=== PATIENT | male | born 1985 | race Caucasian/White ===

== ENCOUNTER 2023-07-31 21:12 | Emergency (ER) | payer OTHER, SELFPAY ==
[2023-07-31 21:12] VITALS: BMI 24.1
[2023-07-31 21:17] VITALS: BP 126/71
--- NOTE | 2023-07-31 23:18 | ED.GENMED ---
History of Present Illness
General
Chief Complaint: Foreign Body Removal
Source: patient
Exam Limitations: none
Time Seen by Provider: 07/31/23 23:12
Travel History
Have you had any contact with someone who has COVID-19?: No
Do you have any symptoms of coronavirus? Fever > 100 degrees, chills, cough, shortness of breath, sore throat, loss of taste or smell, muscle aches, or headache?: No
History of Present Illness
History of Present Illness:
See MDM
Past History
Past History
ED Past Medical History: GERD, Psychiatric (Depression) and Other (ankylosing spondylitis, colitis, rheumatoid arthritis, chronic pain syndrome/opioid dependent, depression, failure to thrive, GERD)
ED Past Surgical History: None
Social History
Personal: Single
Living: alone (currently residing at [facility] since 08/13/14 d/t inability to care for self at home.)
Employment: Disabled
Family History
Family History: Other (Noncontributory.)
Phy Exam
Physical Exam
Physical Exam:
See MDM
Course
Vital Signs
Initial and Last Documented VS:
Initial Vital Signs
Temp Pulse Resp BP Pulse Ox
98.1 F 73 16 126/71 99
07/31/23 21:17 07/31/23 21:17 07/31/23 21:17 07/31/23 21:17 07/31/23 21:17
Last Documented Vital Signs
Temp Pulse Resp BP Pulse Ox
98.1 F 73 16 126/71 99
07/31/23 21:17 07/31/23 21:17 07/31/23 21:17 07/31/23 21:17 07/31/23 21:17
Procedures
Foreign Body Removal-Skin
Wound explored and foreign body removed?: Yes
Foreign body removed using: forceps
Foreign body removed: completely
MDM/Problems Addressed
Differential Diagnosis Includes:
HPI and MDM Narrative:
38-year-old male presenting with a foreign body in his mouth. Patient was eating a hamburger and he felt a crochet machine operator his gums, behind his right molar. Patient believes it could be a piece of wire
Patient is unsure about his last tetanus shot but declined one here
Physical exam
General: Well appearing and non-toxic
HEENT: protecting airway. Thin metal wire noted lodged in gingiva behind right lower molar
Neck: appears supple
CV: No evidence of cyanosis
Resp: No accessory muscle use
Abd: Non-distended
Extremities: No deformities
Neuro: alert
Psych: Normal affect
Skin: Intact
Problems Addressed including Acute and Chronic Conditions affecting care:
1. Oral foreign body
Acuity: acute
Prognosis: stable
Details: Mosquito forceps were used and the foreign body was easily pulled out of the gingiva. No complications noted. The foreign body measured approximately 1.5 cm.
Updates
After the foreign body was removed, patient feeling better. Discussed looking for any signs of infection in that area such as abscess or discharge
Differential Diagnosis (but not limited to): Foreign body, abrasion
Testing considered: X-ray looking for other foreign bodies
Drug therapy (if applicable): OTC meds, please see d/c instruction regarding Rx drugs
Amount and/or Complexity of Data Reviewed
Clinical info obtained from: Patient
External data reviewed: N/A
Labs I independently reviewed (but not limited to): N/A
Radiology: N/A
Pulse Ox: not hypoxic
EKG independently reviewed: N/A
Occasional Babysitter: N/A
Critical Care: N/A
Risk of Complication:
Social Determinants of health: Good social support
Discussed with other providers: N/A
Escalation of Care includes Admit/Obs: After being observed in the Emergency Department, pt stable for discharge.
Occasional wrong word or 'sound a like' substitutions may have occurred due to the inherent limitations of voice recognition software. Read the chart carefully and recognize, using context, where substitutions have occurred.
*Critical Care Note
Total Time (30-74mins, 75-104mins- exclusive of procedures): Not Applicable
ED Attending Note
-
Portions of this chart may have been created with voice recognition software.� Occasional wrong word or��sound alike� substitutions may have occurred due to the inherent limitations of voice recognition software.
Discharge Plan
Departure
Patient Disposition: Home (Routine Discharge)
Date of Disposition: 07/31/23
Time of Disposition: 23:19
Patient with high blood pressure during this ER visit?: No
Discharge Problem:
Foreign body in mouth
Prescriptions:
No Action
acetaminophen 325 MG tablet
650 mg PO Q4HPRN PRN (Reason: pain (1-4)/ temp>100)
magnesium hydroxide 30 ML suspension
30 ml PO HSPRN PRN (Reason: no BM x 3 days)
oxycodone-acetaminophen [Percocet] 1 EACH tablet
1 ea PO Q8HPRN PRN (Reason: severe pain)
bisacodyl [OneLAX Bisacodyl] 10 MG suppository
10 mg MI DAILYPRN PRN (Reason: Constipation if MOM ineff.)
ferrous sulfate [FeroSul] 325 MG tablet
325 mg PO DAILY
adalimumab [Humira] 40 MG/0.8 ML syringe kit
40 mg SC FR@0800
duloxetine 60 MG capsule,delayed release(DR/EC)
60 mg PO DAILY
sennosides [senna] 1 TABLET tablet
2 tab PO DAILY
clonazepam 0.5 MG tablet
0.5 mg PO BID
pantoprazole 40 MG tablet,delayed release (DR/EC)
40 mg PO DAILY
sodium phosphates [Enema] 135 ML enema
135 ml RC DAILYPRN PRN (Reason: constip if supp ineffective)
cholecalciferol (vitamin D3) 5,000 UNIT tablet
5,000 unit PO DAILY
cyclobenzaprine 5 MG tablet
10 mg PO BID
docusate sodium [Stool Softener] 100 MG tablet
200 mg PO BID Qty: 60 0RF
fentanyl 100 MCG patch 72 hour
100 mcg transdermal Q72H Qty: 0 0RF
oxycodone 5 MG tablet
5 mg PO Q8HPRN PRN (Reason: SEVERE PAIN) Qty: 0 0RF
Activity Restrictions/Additional Instructions:
Please keep an eye on the area where the metal wire was. Please return if you notice any evidence of discharge, swelling or abscess.
Interventions
Interventions:
*Risk Screen - Suicide Last Done: 07/31/23 21:17
*General Assessment Last Done: 07/31/23 21:17
*Neglect/Abuse Screening Last Done: 07/31/23 21:17
Discharge Date and Time
Print Language: BULGARIAN
[2023-07-31 23:28] VITALS: BP 125/77
== END 2023-07-31 23:40 | disposition home or self-care (01) ==
LOC: EMR 21:12
PROVIDERS: EMERGENCY PHYSICIAN Student in an Organized Health Care Education/Training Program
DX: T18.0XXA Foreign body in mouth, initial encounter (principal); W44.9XXA Unspecified foreign body entering into or through a natural orifice, initial encounter
CPT/HCPCS: 41805; 99284

== ENCOUNTER 2023-09-06 10:43 | Emergency (ER) | payer OTHER, SELFPAY ==
[2023-09-06 10:58] VITALS: BP 124/79
--- NOTE | 2023-09-06 12:03 | ED.GENMED ---
History of Present Illness
<Miriam Rico PA-C - Last Filed: 09/06/23 19:21>
General
Chief Complaint: Chest Problem
Exam Limitations: none
Time Seen by Provider: 09/06/23 11:39
Nursing documentation reviewed up to this point in time: agreed with
History of Present Illness
History of Present Illness:
Patient is a 38-year-old male with history ankylosing spondylitis presenting for evaluation of multiple complaints today. Patient states that he was 'cracking 'his back to help with his chronic back pain from his ankylosing spondylitis when last
week he heard had a painful 'crack'. Patient states he started to have pain in his right lower chest wall. He denies any exertional or pleuritic component to pain. He is unsure if his pain is coming due with an cracking his back or if it may be a
cardiac problem. In addition�patient does report pain in his left hip, although he is walking without difficulty. Patient denies any known trauma or inciting event. Patient denies any fever, chills, shortness of breath, urinary symptoms, nausea,
or vomiting. Patient denies any changes in vision, headache, or other symptoms.
Patient has not followed with a assistant women's basketball coach for his enclosing spondylitis in many years. He does however state that he is scheduling appoint with a neurosurgeon to discuss his back pain.
Past History
<Miriam Rico PA-C - Last Filed: 09/06/23 19:21>
Past History
ED Past Medical History: GERD, Psychiatric (Depression) and Other (ankylosing spondylitis, colitis, rheumatoid arthritis, chronic pain syndrome/opioid dependent, depression, failure to thrive, GERD)
ED Past Surgical History: None
Social History
Personal: Single
Living: alone (currently residing at [facility] since 08/13/14 d/t inability to care for self at home.)
Employment: Disabled
Family History
Family History: Other (Noncontributory.)
Review of Systems
<Miriam Rico PA-C - Last Filed: 09/06/23 19:21>
Review of Systems
Allergies reviewed?: Yes
All Other Systems: ROS reviewed and negative except as documented in HPI and ROS
Phy Exam
<Miriam Rico PA-C - Last Filed: 09/06/23 19:21>
Physical Exam
Physical Exam:
Vitals: Patient's vital signs are stable. Afebrile
General: Patient is well appearing, no acute distress. Nontoxic-appearing
Skin: Warm and dry, no rashes or lesions. No ecchymoses
Head: Normocephalic, atraumatic
Eyes: Sclera nonicteric. EOMs intact. No nystagmus.
Throat: Protecting airway
Neck: Normal ROM, no cervical spine tenderness, no meningismus
Cardiac: Regular rate and rhythm, no murmurs.
Pulm: Normal respiratory effort, no wheezes, rales, rhonchi heard on exam.
Abdomen: Abdomen soft. No abdominal tenderness.
Back: Mild midline thoracic spinal tenderness without any obvious bony deformity. No ecchymoses. No cervical spine tenderness. Full range of motion at neck.
Extremities: Mild tenderness palpation over left iliac crest without any obvious bony deformity or ecchymoses. Excellent range of motion in left hip without any pain. No evidence of cyanosis or edema. Great distal pulses in bilateral lower
extremities.
Neuro: AAOx3. CN II-XII intact. No focal neurologic deficits. Strength 5 out of 5 in upper and lower extremities. Sensation fully
Psychiatric: Normal affect.
Course
<Miriam Rico PA-C - Last Filed: 09/06/23 19:21>
Orders/Labs/Results
Orders:
Orders
09/06/23 10:47
Electrocardiogram (*1) Urgent
Reason for Study: Chest Pain
EKG- Treatment ONCE
09/06/23 11:00
EKG- Treatment ONCE
09/06/23 12:05
Ketorolac [Toradol] 15 mg IV NOW STA
CR Hip - LT w/wo Pel 2-3 Vw* Urgent
Comment: hx ankylosing spondylitis
Reason For Exam: Left hip pain
Include a pelvis x-ray?: Yes
09/06/23 12:06
CR Chest - 2 Views Urgent
Comment:
Reason For Exam: Right lower chest wall pain
09/06/23 12:15
Complete Blood Count/With Diff Urgent
Comprehensive Metabolic Panel Urgent
Troponin I Urgent
09/06/23 13:42
CT Chest W/o Iv Contrast Urgent
Comment:
Reason For Exam: 'pop' in right chest/flank; chest pain
Abnormal Lab Results
09/06/23
12:15
RBC 4.66 L 10^6/uL
(4.70-6.10)
MCHC 32.8 L g/dL
(33.0-37.0)
MPV 11.3 H fL
(7.4-10.4)
Neutrophils % 76.2 H %
(42.2-75.2)
Lymphocytes % 17.3 L %
(20.5-51.1)
09/06/23 12:15
09/06/23 12:15
Vital Signs
Initial and Last Documented VS:
Initial Vital Signs
Temp Pulse Resp BP Pulse Ox
37.4 C 95 18 124/79 97
09/06/23 10:58 09/06/23 10:58 09/06/23 10:58 09/06/23 10:58 09/06/23 10:58
Last Documented Vital Signs
Temp Pulse Resp BP Pulse Ox
36.8 C 57 18 110/67 99
09/06/23 16:50 09/06/23 16:50 09/06/23 16:50 09/06/23 16:50 09/06/23 16:50
<Brent Poole MD - Last Filed: 09/06/23 21:42>
Orders/Labs/Results
Orders:
Orders
09/06/23 10:47
Electrocardiogram (*1) Urgent
Reason for Study: Chest Pain
EKG- Treatment ONCE
09/06/23 11:00
EKG- Treatment ONCE
09/06/23 12:05
Ketorolac [Toradol] 15 mg IV NOW STA
CR Hip - LT w/wo Pel 2-3 Vw* Urgent
Comment: hx ankylosing spondylitis
Reason For Exam: Left hip pain
Include a pelvis x-ray?: Yes
09/06/23 12:06
CR Chest - 2 Views Urgent
Comment:
Reason For Exam: Right lower chest wall pain
09/06/23 12:15
Complete Blood Count/With Diff Urgent
Comprehensive Metabolic Panel Urgent
Troponin I Urgent
09/06/23 13:42
CT Chest W/o Iv Contrast Urgent
Comment:
Reason For Exam: 'pop' in right chest/flank; chest pain
Abnormal Lab Results
09/06/23
12:15
RBC 4.66 L 10^6/uL
(4.70-6.10)
MCHC 32.8 L g/dL
(33.0-37.0)
MPV 11.3 H fL
(7.4-10.4)
Neutrophils % 76.2 H %
(42.2-75.2)
Lymphocytes % 17.3 L %
(20.5-51.1)
09/06/23 12:15
09/06/23 12:15
Vital Signs
Initial and Last Documented VS:
Initial Vital Signs
Temp Pulse Resp BP Pulse Ox
37.4 C 95 18 124/79 97
09/06/23 10:58 09/06/23 10:58 09/06/23 10:58 09/06/23 10:58 09/06/23 10:58
Last Documented Vital Signs
Temp Pulse Resp BP Pulse Ox
36.8 C 57 18 110/67 99
09/06/23 16:50 09/06/23 16:50 09/06/23 16:50 09/06/23 16:50 09/06/23 16:50
<Miriam Rico PA-C - Last Filed: 09/06/23 19:21>
MDM/Problems Addressed
Differential Diagnosis Includes:
Not limited to acute on chronic back pain, rib contusion, rib fracture, costochondritis, pericarditis, myocarditis, pneumothorax, hip fracture
Chronic conditions affecting care:
Ankylosing spondylitis
<Miriam Rico PA-C - Last Filed: 09/06/23 19:21>
*Radiology
Radiology exam reviewed: preliminary read by ED provider and radiology read reviewed
*Pulse Oximetry
Patient hypoxic: no
*EKG
Interpreted by ED Provider?: Yes
EKG Intrepretation Date: 09/06/23
Interpretation: normal
Rhythm: sinus
[place]: normal axis
Interval: normal interval
Ischemia: non-specific ST changes
*Director Investor Relations Interpretation
Rate: normal
Interpretation: normal
Heart Rate: 84
Rhythm: sinus
*Critical Care Note
Total Time (30-74mins, 75-104mins- exclusive of procedures): Not Applicable
ED Attending Note
<Miriam Rico PA-C - Last Filed: 09/06/23 19:21>
-
Portions of this chart may have been created with voice recognition software.� Occasional wrong word or��sound alike� substitutions may have occurred due to the inherent limitations of voice recognition software.
<Brent Poole MD - Last Filed: 09/06/23 21:42>
ED Attending Note
Patient seen and examined by attending physician: Yes
ED Attending Note:
I have seen and evaluated the patient with a [id number] encounter. I have spoken to the advance practicer provider and involved in the medical history, the physical exam, medical decision making.
Evaluation and management service: agree unless noted differently below.
Results interpretation: agree unless noted differently below.
Focused HPI: 38-year-old male with history as documented presents to the emergency department primarily for evaluation of right chest wall discomfort. Patient has a history of ankylosing spondylitis; he says that this results in chronic back pain
and he typically will lay on his back every day to try and stretch and improve his posture. He says he typically hears some pops and cracks in his vertebrae when he does this. He says that 2 days ago when he did this he felt a pop and crack in the
right chest wall and had pain which has been constant but waxing and waning since then. Came to the emergency room for assessment. He also reports subacute to chronic pain in the left hip although he has no difficulty with weightbearing and has
not had any direct trauma. He denies any shortness of breath, cough, fevers, edema or any other complaints.
Physical exam: Awake alert not in distress. Vitals normal. Mild right chest wall tenderness. No midline thoracic or lumbar tenderness. Lungs clear to auscultation. No cardiac rubs gallops or murmurs. Good pulses in all extremities. On exam of
the left hip he has full active range of motion with minimal discomfort.
Medical Decision Makin-year-old male presents for evaluation of right chest wall pain as above. Also subacute to chronic left hip pain atraumatic. Vital signs normal. Exam as above. EKG no acute ischemic changes. We sent basic labs
including a CBC and a CMP which were unremarkable. We sent a troponin which was undetectable and with greater than 24 hours of symptoms sufficient to rule out acute GA. He was sent for initial chest x-ray which was unremarkable as well as an x-ray
of the left hip which was unremarkable. Followed up with a CT chest to rule out occult rib fracture�showed findings consistent with chronic costochondritis no other acute abnormalities. Suspect likely acute on chronic costochondritis. Advised to
take NSAIDs, treated with Toradol with improvement here. Follow-up with PCP as an outpatient.
Discharge Plan
Departure
Patient Disposition: Home (Routine Discharge)
Date of Disposition: 09/06/23
Time of Disposition: 16:30
Patient with high blood pressure during this ER visit?: No
Condition: Good
Discharge Problem:
Chest pain, Back pain
Instructions: Ankylosing Spondylitis (DC), Chest Pain, Adult ED
Prescriptions:
No Action
acetaminophen 325 MG tablet
650 mg PO Q4HPRN PRN (Reason: pain (1-4)/ temp>100)
magnesium hydroxide 30 ML suspension
30 ml PO HSPRN PRN (Reason: no BM x 3 days)
oxycodone-acetaminophen [Percocet] 1 EACH tablet
1 ea PO Q8HPRN PRN (Reason: severe pain)
bisacodyl [OneLAX Bisacodyl] 10 MG suppository
10 mg MA DAILYPRN PRN (Reason: Constipation if MOM ineff.)
ferrous sulfate [FeroSul] 325 MG tablet
325 mg PO DAILY
adalimumab [Humira] 40 MG/0.8 ML syringe kit
40 mg SC FR@0800
duloxetine 60 MG capsule,delayed release(DR/EC)
60 mg PO DAILY
sennosides [senna] 1 TABLET tablet
2 tab PO DAILY
clonazepam 0.5 MG tablet
0.5 mg PO BID
pantoprazole 40 MG tablet,delayed release (DR/EC)
40 mg PO DAILY
sodium phosphates [Enema] 135 ML enema
135 ml RC DAILYPRN PRN (Reason: constip if supp ineffective)
cholecalciferol (vitamin D3) 5,000 UNIT tablet
5,000 unit PO DAILY
cyclobenzaprine 5 MG tablet
10 mg PO BID
docusate sodium [Stool Softener] 100 MG tablet
200 mg PO BID Qty: 60 0RF
fentanyl 100 MCG patch 72 hour
100 mcg transdermal Q72H Qty: 0 0RF
oxycodone 5 MG tablet
5 mg PO Q8HPRN PRN (Reason: SEVERE PAIN) Qty: 0 0RF
Referrals:
UNKNOWN - PT NOT,INTERVIEWE [Family Provider] -
Activity Restrictions/Additional Instructions:
RETURN TO THE EMERGENCY DEPARTMENT WITH ANY FEVERS, CHILLS, WORSENING CHEST PAIN, SHORTNESS OF BREATH, INTRACTABLE PAIN, WORSENING IN CURRENT SYMPTOMS, OR ANY OTHER CONCERNS
-You should take Motrin and/or Tylenol as needed at home for discomfort. You can try OTC lidocaine patches
-Stay well-hydrated. Take all medications as prescribed.
-You should follow-up with your assistant women's basketball coach and primary care provider for further evaluation/manage
Interventions
Interventions:
*Risk Screen - Suicide Last Done: 09/06/23 12:13
*General Assessment Last Done: 09/06/23 12:13
*Neglect/Abuse Screening Last Done: 09/06/23 12:13
ED- Fall Risk Assessment Last Done: 09/06/23 12:13
*ED COVID-19 Vaccine History Last Done: 09/06/23 12:13
*Nursing Disposition Last Done: 09/06/23 16:50
ED- Cardiac Assessment Last Done: 09/06/23 12:13
ED- Pulmonary Assessment Last Done: 09/06/23 12:13
Discharge Date and Time
Discharge Date/Time: 09/06/23 16:51
Print Language: MEXICAN
[2023-09-06 12:13] VITALS: BMI 23.2
[2023-09-06] MEDS: TORADOL 15 MG IV (12:15)
[2023-09-06 12:31] VITALS: BP 119/74
[2023-09-06 12:34] LABS: % Basophils 1.2 % (0-2); % Eosinophils 0.7 % (0-6); % Immature Granulocytes 0.1 % (0-0.5); % Lymphocytes 17.3 % (20.5-51.1); % Monocytes 4.5 % (1.7-9.3); % Neutrophils 76.2 % (42.2-75.2); Absolute Basophils 0.1 10^3/uL (0-0.2); Absolute Eosinophils 0.1 10^3/uL (0-0.7); Absolute Lymphocytes 1.2 10^3/uL (1.2-3.4); Absolute Monocytes 0.3 10^3/uL (0.1-0.6); Absolute Neutrophils 5.2 10^3/uL (1.4-6.5); Hematocrit 39.6 % (39.0-52.0); Mean Corp Hgb Conc. 32.8 g/dL (33.0-37.0); Mean Corpuscular Hgb 27.9 pg (27.0-31.0); Mean Platelet Volume 11.3 fL (7.4-10.4); Nucleated Red Blood Cells % 0 % (-); Platelet Count 241 10^3/uL (130-400); Red Blood Cell Count 4.66 10^6/uL (4.70-6.10); Red Cell Dist. Width 13.3 % (11.5-14.5); White Blood Cell Count 6.9 10^3/uL (4.8-10.8)
[2023-09-06 12:40] LABS: ALT (SGPT) 11 U/L (0-50); AST (SGOT) 19 U/L (17-59); Albumin 4.3 g/dl (3.5-5.0); Alkaline Phosphatase 76 U/L (38-126); Blood Urea Nitrogen 14 mg/dl (9-20); Calcium 9.7 mg/dl (8.4-10.2); Carbon Dioxide 25 mmol/L (22-30); Chloride 104 mmol/L (98-107); Estimated Creatinine Clearance 111 ml/min; Glucose 92 mg/dl (70-99); Potassium 4.1 mmol/L (3.5-5.1); Sodium 140 mmol/L (135-145); Total Bilirubin 0.8 mg/dl (0.2-1.3); Total Protein 7.2 g/dl (6.3-8.2); eGFR > 60.00
[2023-09-06 13:00] VITALS: BP 118/70
[2023-09-06 14:00] VITALS: BP 113/71
[2023-09-06 14:20] LABS: Troponin I < 0.012 ng/ml
[2023-09-06 15:00] VITALS: BP 107/69
[2023-09-06 16:50] VITALS: BP 110/67
== END 2023-09-06 16:51 | disposition home or self-care (01) ==
LOC: EMR 10:43
PROVIDERS: Physician Assistant; EMERGENCY PHYSICIAN Emergency Medicine
DX: R07.89 Other chest pain (principal); M54.9 Dorsalgia, unspecified
CPT/HCPCS: 99285; 96374; 71046; 71250; 73502; 80053; 84484; 85025; 93005